=== PATIENT | female | born 1960 | race American Indian/Alaskan Native ===

== ENCOUNTER 2017-12-17 07:35 | Emergency (ER) | payer BC ==
[2017-12-17] MEDS ORDERED: PERCOCET 5/325 PO ONE (09:21)
[2017-12-17] MEDS ORDERED: FLEXERIL PO ONE (09:21)
[2017-12-17] MEDS ORDERED: TORADOL IM ONE (09:21)
--- NOTE | 2017-12-17 09:24 | Emergency Department Report ---
ED Back Pain/Injury HPI - General Chief Complaint: Back Pain/Injury Stated Complaint: LEFT FLANK PAIN Time Seen by Provider: 12/17/17 09:14 Source: patient Limitations: No Limitations - History of Present Illness MD Complaint: back pain -: Gradual Similar Symptoms Previously: No Radiation: none Severity: moderate Quality: dull Consistency: intermittent Worsens With: movement Associated Symptoms: other (strong odor to urine) - Related Data Previous Rx's Medication Instructions Recorded Last Taken Type Cephalexin [Keflex] 500 mg PO Q6HR 7 Days #28 capsule 12/17/17 Unknown Rx Cyclobenzaprine [Flexeril] 10 mg PO TID PRN #20 tablet 12/17/17 Unknown Rx HYDROcodone/APAP 5-325 [Erwin 1 each PO Q6HR PRN #10 tablet 12/17/17 Unknown Rx 5/325] Ibuprofen 400 mg PO QID 5 Days #20 tablet 12/17/17 Unknown Rx Allergies Allergy/AdvReac Type Severity Reaction Status Date / Time Penicillins Allergy Hives Verified 12/17/17 07:38 ED Review of Systems ROS: Stated complaint: LEFT FLANK PAIN Other details as noted in HPI Comment: All other systems reviewed and negative Constitutional: denies: fever, malaise Cardiovascular: denies: chest pain ED Past Medical Hx - Past Medical History Hx Hypertension: Yes - Social History Smoking Status: Never Smoker Substance Use Type: None - Medications Home Medications: Home Medications Medication Instructions Recorded Confirmed Last Taken Type Cephalexin [Keflex] 500 mg PO Q6HR 7 Days #28 capsule 12/17/17 Unknown Rx Cyclobenzaprine [Flexeril] 10 mg PO TID PRN #20 tablet 12/17/17 Unknown Rx HYDROcodone/APAP 5-325 [Erwin 1 each PO Q6HR PRN #10 tablet 12/17/17 Unknown Rx 5/325] Ibuprofen 400 mg PO QID 5 Days #20 tablet 12/17/17 Unknown Rx ED Physical Exam - General Limitations: No Limitations General appearance: alert, in no apparent distress - Head Head exam: Present: atraumatic, normocephalic - Eye Eye exam: Present: normal appearance - ENT ENT exam: Present: mucous membranes moist - Neck Neck exam: Present: normal inspection - Respiratory Respiratory exam: Present: normal lung sounds bilaterally. Absent: respiratory distress, wheezes, rales, rhonchi - Cardiovascular Cardiovascular Exam: Present: regular rate, normal rhythm. Absent: systolic murmur, diastolic murmur, rubs, gallop - GI/Abdominal GI/Abdominal exam: Present: soft, normal bowel sounds. Absent: distended, tenderness, guarding, rebound - Extremities Exam Extremities exam: Present: normal inspection - Back Exam Back exam: Present: normal inspection, full ROM. Absent: tenderness, CVA tenderness (R), CVA tenderness (L), muscle spasm, paraspinal tenderness, vertebral tenderness, rash noted - Neurological Exam Neurological exam: Present: alert, oriented X3 - Psychiatric Psychiatric exam: Present: normal affect, normal mood - Skin Skin exam: Present: warm, dry, intact, normal color. Absent: rash ED Course Vital Signs 12/17/17 12/17/17 12/17/17 07:38 09:28 09:58 Temperature 98.4 F Pulse Rate 79 Respiratory 18 18 18 Rate Blood Pressure 155/102 O2 Sat by Pulse 100 Oximetry 12/17/17 10:38 Temperature Pulse Rate Respiratory 18 Rate Blood Pressure O2 Sat by Pulse Oximetry ED Medical Decision Making - Medical Decision Making Mrs. Acevedo is a healthy female who presents with 3 days of left intermittent flank pain worse with movement. noted strong odor to urine Patient has likely has lower UTI with lumbar back pain. I have prescribed Keflex. Also prescribed ibuprofen and Erwin and Flexeril. No indication of kidney stones or pyelonephritis on CT scan Patient understands that she has a lesion on her left kidney which will need further evaluation. Critical care attestation.: If time is entered above; I have spent that time in minutes in the direct care of this critically ill patient, excluding procedure time. ED Disposition Clinical Impression: UTI (urinary tract infection), Lumbar strain, Left kidney mass Disposition: TO HOME OR SELFCARE Is pt being admited?: No Does the pt Need Aspirin: No Condition: Stable Instructions: Low Back Strain (ED), Urinary Tract Infection in Women (ED) Additional Instructions: You have a cyst on her left kidney which needs to be evaluated by your primary physician Prescriptions: Cephalexin [Keflex] 500 mg PO Q6HR 7 Days #28 capsule Cyclobenzaprine [Flexeril] 10 mg PO TID PRN #20 tablet PRN Reason: Muscle Spasm HYDROcodone/APAP 5-325 [Erwin 5/325] 1 each PO Q6HR PRN #10 tablet PRN Reason: Pain Ibuprofen 400 mg PO QID 5 Days #20 tablet Referrals: PRIMARY CARE, [Primary Care Provider] - 3-5 Days Forms: Work/School Release Form(ED) Time of Disposition: 12:04
[2017-12-17 10:27] LABS: Bacteria,Urine 1+ /HPF (Negative); Bilirubin,Urine NEG (Negative); Blood,Urine LG (Negative); Color,Urine Yellow (Yellow); Mucus,Urine 1+ /HPF; Protein,Urine <15 mg/dL mg/dL (Negative); Urobilinogen,Urine < 2.0 mg/dL (<2.0)
--- NOTE | 2017-12-17 11:39 | Cat Scan Report ---
FINAL REPORT EXAM: CT ABDOMEN PELVIS WO CON HISTORY: hematuria left flank pain COMPARISON: None. TECHNIQUE: Multiple contiguous axial images were obtained from the lung bases to the pubic symphysis without administration of IV contrast. Reformatted sagittal and coronal images were available for review. FINDINGS: Lung bases: Calcified granuloma in the left lower lobe. Visualized heart and mediastinum: Normal noncontrast appearance. Liver: Normal noncontrast appearance. Spleen: Normal noncontrast appearance. Pancreas: Normal noncontrast appearance. Gallbladder and Biliary Tree: No calcified gallstones. No biliary ductal dilatation. Adrenal glands: Normal. Kidneys: 2.3 centimeter low-density lesion in the left kidney, that may represent a cyst but is incompletely evaluated on this noncontrast study. No hydronephrosis. No renal or ureteral calculi. Bladder: Normal. Pelvic organs: Tubal ligation has been performed. The uterus and ovaries are normal in appearance. Bowel: No focal wall thickening. No evidence of obstruction. The appendix is normal in caliber without surrounding inflammatory change. Diverticulosis of the descending and sigmoid colon without evidence of diverticulitis. Peritoneum: No significant mesenteric adenopathy. No free air or free fluid. Vasculature: Abdominal aorta is normal in caliber without evidence of aneurysm. Scattered atherosclerotic calcifications. Normal noncontrast appearance of the portal venous system and the inferior vena cava. Bones and soft tissues: No suspicious osseous lesions. No acute fracture or dislocation. The soft tissues are normal. IMPRESSION: 2.3 centimeter low-density lesion in the left kidney, that may represent a cyst but is incompletely evaluated on this noncontrast study. Consider further evaluation with ultrasound. No renal or ureteral calculi. No obstructive uropathy.
[2017-12-17 12:13] VITALS: BP 130/78
== END 2017-12-17 12:14 | disposition home or self-care (01) ==
LOC: ED 07:35
DX: S39.012A Strain of muscle, fascia and tendon of lower back, initial encounter (principal); N39.0 Urinary tract infection, site not specified; N28.89 Other specified disorders of kidney and ureter; I10 Essential (primary) hypertension; Z88.0 Allergy status to penicillin; X58.XXXA Exposure to other specified factors, initial encounter; Y93.89 Activity, other specified; Y99.8 Other external cause status; Y92.89 Other specified places as the place of occurrence of the external cause
CPT/HCPCS: 74176; 81001; 96372; 99284; J1885

== ENCOUNTER 2019-07-26 13:10 | Outpatient (CLI) | payer BC ==
--- NOTE | 2019-07-26 14:00 | XRay Report ---
LEFT WRIST 4 VIEWS INDICATION / CLINICAL INFORMATION: M25.532 PAIN IN LEFT WRIST X 3MOS-NEAR STYLOID ON RADIUS. COMPARISON: None available. FINDINGS: There is widening of the scapholunate interval characteristic for scapholunate ligament tear. There i s no proximal migration of capitate. No other fracture or dislocation is seen within the left wrist. IMPRESSION: Widened scapholunate interval characteristic for scapholunate ligament tear. Left wrist M RI arthrogram may BE useful for further characterization if warranted clinically. Signer Name: Woo Michaud MD Signed: 07/26/2019 1:56 PM Workstation Name: [id number]
== END 2019-07-26 13:11 | disposition home or self-care (01) ==
LOC: XRAY 13:10
DX: S63.592A Other specified sprain of left wrist, initial encounter (principal); X58.XXXA Exposure to other specified factors, initial encounter; Y93.89 Activity, other specified; Y92.89 Other specified places as the place of occurrence of the external cause; Y99.8 Other external cause status